=== PATIENT | male | born 1990 | race Two or more races ===

== ENCOUNTER 2023-03-24 00:19 | Emergency (ER) | payer OTHER ==
[~2023-03-24] VITALS: Ht 185.4 cm; Wt 113.6 kg
[2023-03-24 00:34] VITALS: BP 108/49; PULSE 68; RESP 18; O2SAT 95
[2023-03-24] MEDS ORDERED: HYDROcodone-ACET 10/325MG TAB PO ONE (02:45)
[2023-03-24] MEDS ORDERED: KETOROLAC TROMETH 60MG/2ML VIAL IM ONE (02:45)
[2023-03-24 03:40] LABS: Urine Bacteria NONE SEEN /hpf (None Seen); Urine Blood Negative /uL (Negative); Urine Clarity Clear (Clear); Urine Color Yellow (Yellow); Urine Mucus FEW (None Seen); Urine Protein, UAD TRACE (Negative); Urine Specific Gravity 1.029 (1.001-1.035); Urine WBC 11 /hpf (0 - 3); Urine pH 5.5 (5.0-8.0)
== END 2023-03-24 03:55 | disposition left against medical advice (07) ==
LOC: ER 00:19
DX: N39.0 Urinary tract infection, site not specified (principal)
CPT/HCPCS: 81001